=== PATIENT | male | born 1990 | race American Indian/Alaskan Native ===

== ENCOUNTER 2023-12-18 22:11 | Emergency (ER) | payer SELFPAY ==
[2023-12-18] MEDS: Sodium Chloride 0.9% 1,000 ML IV ONE (22:40)
== END 2023-12-19 03:00 | disposition home or self-care (01) ==
LOC: JD.ED 22:11
DX: T40.411A Poisoning by fentanyl or fentanyl analogs, accidental (unintentional), initial encounter (principal)
CPT/HCPCS: 96360; 99284; J7030; 99283